=== PATIENT | female | born 1945 | race Caucasian/White ===

== ENCOUNTER 2020-09-14 15:16 | Observation (INO) | payer MEDICARE, OTHER ==
[~2020-09-14] VITALS: Ht 167.6 cm; Wt 65.3 kg
[2020-09-14] MEDS ORDERED: ELIQUIS5 MG PO (16:50)
[2020-09-14] MEDS ORDERED: PRAVASTATIN SOD10 MG PO (16:51)
[2020-09-14] MEDS ORDERED: HYDRALAZINE HCL25 MG PO (16:51)
[2020-09-14] MEDS ORDERED: LISINOPRIL20 MG PO (16:52)
[2020-09-14] MEDS ORDERED: NAMENDA10 MG PO (16:52)
[2020-09-14] MEDS ORDERED: VENTOLIN HFA 66.7 GM INH (16:53)
[2020-09-14] MEDS ORDERED: K-DUR TAB 10 M10 MEQ PO (16:53)
[2020-09-14] MEDS ORDERED: VITAMIN D21250 MCG PO (16:54)
[2020-09-14] MEDS ORDERED: CETIRIZINE HCL10 MG PO (16:54)
[2020-09-14] MEDS ORDERED: SENNA LAXATIVE8.6 MG PO (16:55)
[2020-09-14] MEDS ORDERED: PROBIOTIC1 EAC2 PO (16:55)
[2020-09-14] MEDS ORDERED: ULTRAM50 MG PO (16:56)
[2020-09-15 02:17] LABS: HEMOGLOBIN 10.6 gm/dl (12.3-15.3); RED BLOOD COUNT 3.71 M/UL (4.00-5.10); WHITE BLOOD COUNT 7.2 K/UL (4.5-11.0)
--- NOTE | 2020-09-16 01:06 | NUR ---
09/15/202231 PATIENT REFUSED NIGHT TIME MEDS (HYDRALAZINE AND ELIQUIS). PATIENT WAS EDUCATED ON BENEFITS AND RISKS OF TAKING ELIQUIS AND HYDRALAZINE. PATIENT REFUSED AFTER EDUCATION.
[2020-09-16] MEDS ORDERED: AMLODIPINE BESYL5 MG PO (13:09)
[2020-09-16] MEDS ORDERED: ISOSORBIDE MONO30 MG PO (13:09)
== END 2020-09-16 15:24 | disposition home or self-care (01) ==
LOC: PROG CARE 16:30
PROVIDERS: Nurse Practitioner; ADMIT Internal Medicine Infectious Disease
DX: R07.89 Other chest pain (principal); R77.8 Other specified abnormalities of plasma proteins; N17.9 Acute kidney failure, unspecified; E87.6 Hypokalemia; R79.1 Abnormal coagulation profile; I48.0 Paroxysmal atrial fibrillation; R00.1 Bradycardia, unspecified; J44.0 Chronic obstructive pulmonary disease with (acute) lower respiratory infection; J18.9 Pneumonia, unspecified organism; J98.11 Atelectasis; G30.1 Alzheimer's disease with late onset; F02.80 Dementia in other diseases classified elsewhere, unspecified severity, without behavioral disturbance, psychotic disturbance, mood disturbance, and anxiety; I25.10 Atherosclerotic heart disease of native coronary artery without angina pectoris; I11.9 Hypertensive heart disease without heart failure; D64.9 Anemia, unspecified; E78.5 Hyperlipidemia, unspecified; I71.4 Abdominal aortic aneurysm, without rupture; M19.90 Unspecified osteoarthritis, unspecified site; Z87.891 Personal history of nicotine dependence; Z79.01 Long term (current) use of anticoagulants; Z79.899 Other long term (current) drug therapy; Z95.5 Presence of coronary angioplasty implant and graft; Z91.14 Patient's other noncompliance with medication regimen; Z85.51 Personal history of malignant neoplasm of bladder; Z98.890 Other specified postprocedural states; Z66 Do not resuscitate
CPT/HCPCS: ECHO; 36415; 71045; 80048; 80053; 82140; 82550; 82553; 83735; 83880; 84443; 84484; 85025; 85379; 93005; 93306; 93970; 94760; 96365; 96372; 96375; 96376; 97162; 97166; G0378; G0379; J1335; J1650; J2405; J3480; J7121